=== PATIENT | male | born 1945 | race Caucasian/White ===

== ENCOUNTER 2022-03-30 10:09 | Observation (INO) ==
--- NOTE | 2022-03-30 10:19 | EKG ---
Test Reason : CHEST PAIN Blood Pressure : */* mmHG Vent. Rate : 104 BPM Atrial Rate : 104 BPM P-R Int : 156 ms QRS Dur : 76 ms QT Int : 358 ms P-R-T Axes : 41 11 4 degrees QTc Int : 470 ms Sinus tachycardia Otherwise normal ECG When compared with ECG of 12-MAR-2022 08:38, No significant change was found Confirmed by Sudhakar Gibson ([id number]) on 03/31/2022 8:39:26 AM Referred By: Confirmed By: Sudhakar Gibson
[2022-03-30] MEDS ORDERED: ZOFRAN INJ 4 MG VIAL IVP ONE (10:31)
[2022-03-30] MEDS ORDERED: MORPHINE SULFATE INJ 2 MG INJ IVP ONE (10:31)
--- NOTE | 2022-03-30 10:33 | DR.CP ---
HPI Time Seen Time Seen by Provider: 03/30/22 10:24 COVID-19 Coronavirus risk:travel/contact w/high risk person: No Has patient experienced Coronavirus symptoms: No Associated Signs and Symptoms Associated Signs and Symptoms: Shortness of Breath PMH PMH Past Surgical History: Yes Travel Risk Coronavirus risk:travel/contact w/high risk person: No Has patient experienced Coronavirus symptoms: No Infectious screening Isolation: Standard PE Vitals Vitals: Temperature 98.6 F Pulse Rate 80 Respiratory Rate 19 Blood Pressure 162/85 O2 Sat by Pulse Oximetry 100 ROR Labs Reviewed Result Diagrams: 03/30/22 10:40 03/30/22 10:40 Laboratory: WBC 10.3 X10^3/uL (3.6-10.0) H 03/30/22 10:40 RBC 4.22 X10^6/uL (4.7-6.0) L 03/30/22 10:40 Hgb 12.3 g/dL (13.5-18.0) L 03/30/22 10:40 Hct 36.7 % (42.0-54.0) L 03/30/22 10:40 MCV 86.9 fL (80.0-100.0) 03/30/22 10:40 MCH 29.1 pg (27.0-34.0) 03/30/22 10:40 MCHC 33.4 g/dL (33.0-35.0) 03/30/22 10:40 RDW 14.3 % (11.6-16.5) 03/30/22 10:40 Plt Count 451 X10^3/uL (150.0-450.0) H 03/30/22 10:40 MPV 6.6 fL (7.4-11.0) L 03/30/22 10:40 Neut % (Auto) 64.7 % (42.0-75.0) 03/30/22 10:40 Lymph % (Auto) 23.0 % (21.0-51.0) 03/30/22 10:40 [place] % (Auto) 9.3 % (0.0-13.0) 03/30/22 10:40 Eos % (Auto) 1.8 % (0.9-2.9) 03/30/22 10:40 Baso % (Auto) 1.2 % (0.2-1.0) H 03/30/22 10:40 Neut # (Auto) 6.6 x10^3/uL (2.2-4.8) H 03/30/22 10:40 Lymph # (Auto) 2.4 X10^3/uL (1.3-2.9) 03/30/22 10:40 [place] # (Auto) 1.0 x10^3/uL (0.3-0.8) H 03/30/22 10:40 Eos # (Auto) 0.2 x10^3/uL (0.0-0.2) 03/30/22 10:40 Baso # (Auto) 0.1 X10^3/uL (0.0-0.1) 03/30/22 10:40 Absolute Nucleated RBC 0.0 /100WBC 03/30/22 10:40 Sodium 140 mmol/L (136-145) 03/30/22 10:40 Corrected Sodium TNP 03/30/22 10:40 Potassium 3.6 mmol/L (3.5-5.1) 03/30/22 10:40 Chloride 104 mmol/L (98-107) 03/30/22 10:40 Carbon Dioxide 29.0 mmol/L (21-32) 03/30/22 10:40 BUN 12 mg/dL (7-18) 03/30/22 10:40 Creatinine 1.27 mg/dL (0.70-1.30) 03/30/22 10:40 Est GFR (MDRD) Af Amer > 60 (>60) 03/30/22 10:40 Est GFR (MDRD) Non-Af 59 (>60) 03/30/22 10:40 Glucose 97 mg/dL (65-99) 03/30/22 10:40 Calcium 9.1 mg/dL (8.5-10.1) 03/30/22 10:40 Corrected Calcium 10.1 mg/dL (8.5-10.1) 03/30/22 10:40 Total Bilirubin 0.50 mg/dL (0.2-1.0) 03/30/22 10:40 AST 22 Units/L (15-37) 03/30/22 10:40 ALT 21 Units/L (12-78) 03/30/22 10:40 Alkaline Phosphatase 139 Units/L (46-116) H 03/30/22 10:40 Creatine Kinase 33 Units/L (39-308) L 03/30/22 10:40 Troponin I High Sens 17.9 ng/L (4.0-60.0) 03/30/22 12:31 B-Natriuretic Peptide 80.8 pg/mL (0-79) H 03/30/22 10:40 Total Protein 7.7 g/dL (6.4-8.2) 03/30/22 10:40 Albumin 2.8 g/dL (3.4-5.0) L 03/30/22 10:40 Globulin 4.9 g/dL (2.5-4.5) H 03/30/22 10:40 Albumin/Globulin Ratio 0.6 Ratio (1.1-2.1) L 03/30/22 10:40 Opioid Opioid Risk Tool Age (Pankaj box if 16-45): No History of Preadolescent Sexual Abuse: No Total: 0 Total Score Risk Category: Low Risk Copyright: Vidal SHANE predicting aberrant behaviors Discharge Plan Diagnosis Discharge Problem: Chest pain, COPD exacerbation, SOB (shortness of breath) Discharge Plan Patient Disposition: 09 ADMITTED INPATIENT Condition: Stable Orders to Discharge Patient Discharge Orders: Transfer (Routine); Ordered 03/30/22 Ordered By: LUCAS LUCERO
[2022-03-30 10:34] VITALS: BMI 25.2
[2022-03-30 10:50] LABS: BASOPHILS # (AUTO) 0.1 X10^3/uL (0.0-0.1); BASOPHILS % (AUTO) 1.2 % (0.2-1.0); EOSINOPHILS # (AUTO) 0.2 x10^3/uL (0.0-0.2); EOSINOPHILS % (AUTO) 1.8 % (0.9-2.9); HEMATOCRIT 36.7 % (42.0-54.0); HEMOGLOBIN 12.3 g/dL (13.5-18.0); LYMPHOCYTES # (AUTO) 2.4 X10^3/uL (1.3-2.9); MEAN CORPUSCULAR HEMOGLOBIN 29.1 pg (27.0-34.0); MEAN CORPUSCULAR HGB CONC 33.4 g/dL (33.0-35.0); MEAN CORPUSCULAR VOLUME 86.9 fL (80.0-100.0); MEAN PLATELET VOLUME 6.6 fL (7.4-11.0); MONOCYTES % (AUTO) 9.3 % (0.0-13.0); NEUTROPHILS # (AUTO) 6.6 x10^3/uL (2.2-4.8); NEUTROPHILS % (AUTO) 64.7 % (42.0-75.0); RED BLOOD COUNT 4.22 X10^6/uL (4.7-6.0); RED CELL DISTRIBUTION WIDTH 14.3 % (11.6-16.5); WHITE BLOOD COUNT 10.3 X10^3/uL (3.6-10.0)
[2022-03-30] MEDS ORDERED: ZOFRAN INJ 4 MG VIAL ONE (10:50)
[2022-03-30] MEDS ORDERED: MORPHINE SULFATE INJ 2 MG INJ ONE (10:50)
[2022-03-30 11:08] LABS: ALANINE AMINOTRANSFERASE 21 Units/L (12-78); ALBUMIN 2.8 g/dL (3.4-5.0); ALKALINE PHOSPHATASE 139 Units/L (46-116); ASPARTATE AMINO TRANSFERASE 22 Units/L (15-37); BLOOD UREA NITROGEN 12 mg/dL (7-18); CALCIUM 9.1 mg/dL (8.5-10.1); CHLORIDE 104 mmol/L (98-107); COR CA(FOR HYPOALB) 10.1 mg/dL (8.5-10.1); CREATINE KINASE 33 Units/L (39-308); CREATININE 1.27 mg/dL (0.70-1.30); SODIUM 140 mmol/L (136-145); TOTAL PROTEIN 7.7 g/dL (6.4-8.2); eGFR NON BLACK RACES 59 (>60)
[2022-03-30 16:02] LABS: BILIRUBIN,URINE NEGATIVE (NEGATIVE); BLOOD/HEMOGLOBIN,URINE NEGATIVE (NEGATIVE); GLUCOSE, URINE NEGATIVE (NEGATIVE); KETONES,URINE NEGATIVE (NEGATIVE); LEUKOCYTE ESTERASE ,URINE NEGATIVE (NEGATIVE); NITRITES,URINE NEGATIVE (NEGATIVE); PROTEIN,URINE NEGATIVE (NEGATIVE); UROBILINOGEN,URINE NORMAL (NORMAL)
[2022-03-30 16:06] LABS: APPEARANCE,URINE CLEAR (CLEAR); COLOR,URINE YELLOW (YELLOW)
--- NOTE | 2022-03-30 18:20 | EKG ---
Test Reason : CHEST PAIN Blood Pressure : */* mmHG Vent. Rate : 88 BPM Atrial Rate : 88 BPM P-R Int : 162 ms QRS Dur : 80 ms QT Int : 382 ms P-R-T Axes : 51 16 10 degrees QTc Int : 462 ms Sinus rhythm with premature atrial complexes Otherwise normal ECG When compared with ECG of 30-MAR-2022 10:17, (Unconfirmed) premature atrial complexes are now present Confirmed by Sudhakar Gibson ([id number]) on 03/31/2022 8:38:38 AM Referred By: Confirmed By: Sudhakar Gibson
--- NOTE | 2022-03-30 19:15 | RAD ---
HISTORYCHEST PAINSTUDYCHEST, 1 VIEWCOMPARISONNoneFINDINGSThe cardiomediastinal silhouette is normal in size. No acute airspace disease. No pneumothorax or effusion. The bony thorax appears intact.IMPRESSIONNo acute cardiopulmonary disease.Electronically signed by: JENIFFER AGUILAR (Mar 30, 2022 19:13:06)
--- NOTE | 2022-03-31 01:02 | EKG ---
Test Reason : CHEST PAIN Blood Pressure : */* mmHG Vent. Rate : 85 BPM Atrial Rate : 85 BPM P-R Int : 166 ms QRS Dur : 82 ms QT Int : 384 ms P-R-T Axes : 29 2 -4 degrees QTc Int : 456 ms Normal sinus rhythm Normal ECG Confirmed by Sudhakar Gibson ([id number]) on 03/31/2022 8:37:50 AM Referred By: Confirmed By: Sudhakar Gibson
[2022-03-31 06:17] LABS: BASOPHILS # (AUTO) 0.1 X10^3/uL (0.0-0.1); BASOPHILS % (AUTO) 0.9 % (0.2-1.0); EOSINOPHILS # (AUTO) 0.2 x10^3/uL (0.0-0.2); EOSINOPHILS % (AUTO) 2.1 % (0.9-2.9); HEMATOCRIT 35.7 % (42.0-54.0); HEMOGLOBIN 11.9 g/dL (13.5-18.0); LYMPHOCYTES # (AUTO) 2.5 X10^3/uL (1.3-2.9); LYMPHOCYTES % (AUTO) 25.5 % (21.0-51.0); MEAN CORPUSCULAR HEMOGLOBIN 28.9 pg (27.0-34.0); MEAN CORPUSCULAR HGB CONC 33.3 g/dL (33.0-35.0); MEAN CORPUSCULAR VOLUME 86.8 fL (80.0-100.0); MONOCYTES % (AUTO) 10.3 % (0.0-13.0); NEUTROPHILS # (AUTO) 6.1 x10^3/uL (2.2-4.8); NEUTROPHILS % (AUTO) 61.2 % (42.0-75.0); RED BLOOD COUNT 4.11 X10^6/uL (4.7-6.0); RED CELL DISTRIBUTION WIDTH 14.3 % (11.6-16.5)
[2022-03-31 06:19] LABS: INR 1.19 (0.8-1.3)
[2022-03-31 06:24] LABS: ALANINE AMINOTRANSFERASE 23 Units/L (12-78); ALBUMIN 2.6 g/dL (3.4-5.0); ALKALINE PHOSPHATASE 138 Units/L (46-116); ASPARTATE AMINO TRANSFERASE 27 Units/L (15-37); BLOOD UREA NITROGEN 12 mg/dL (7-18); CALCIUM 8.8 mg/dL (8.5-10.1); CARBON DIOXIDE 27.2 mmol/L (21-32); CHLORIDE 103 mmol/L (98-107); COR CA(FOR HYPOALB) 9.9 mg/dL (8.5-10.1); COR NA(FOR HYPERGLY) 139 mmol/L (136-145); MAGNESIUM 2.1 mg/dL (2.0-2.9); SODIUM 138 mmol/L (136-145); TOTAL PROTEIN 7.3 g/dL (6.4-8.2); eGFR NON BLACK RACES 57 (>60)
[2022-03-31] MEDS ORDERED: ULTRAM PO PRN (07:11)
[2022-03-31] MEDS ORDERED: K-DUR TAB 20 MEQ PO PRN (07:18)
[2022-03-31] MEDS ORDERED: K-RIDER 10 MEQ/NS 100 ML 10 MEQ/100 ML BAG IV PRN (07:18)
[2022-03-31] MEDS ORDERED: POTASSIUM CHL 40 MEQ/NS 0.45% 500 ML IV PRN (07:18)
[2022-03-31] MEDS ORDERED: MICRO K EXTEN CAP 10 MEQ PO PRN (07:18)
[2022-03-31] MEDS ORDERED: KLOR-CON PO PRN (07:18)
[2022-03-31] MEDS ORDERED: POTASSIUM CHL 60 MEQ/NS 0.45% 500 ML IV PRN (07:18)
[2022-03-31] MEDS ORDERED: MAGNESIUM SULFATE 1 GRAM/100 mL PREMIX 1 G/100 ML BAG IV PRN (07:18)
[2022-03-31] MEDS ORDERED: POTASSIUM CHLORIDE LIQ 20 MEQ UDC PO PRN (07:18)
[2022-03-31] MEDS ORDERED: CYMBALTA PO SCH (09:00)
[2022-03-31] MEDS ORDERED: PROTONIX TAB 40 MG PO SCH (09:00)
[2022-03-31 10:42] VITALS: BP 118/71
--- NOTE | 2022-04-01 07:50 | DR.SSS ---
SHORT STAY SUMMARY Admission Date Date of Admission: 03/30/22 Discharge Date Discharge Date: 03/31/22 Admission Diagnoses Admission Diagnoses: Chest pain rule out Discharge Diagnoses Discharge Diagnoses: Chest pain ruled out Chief Complaint Chief Complaint: Chest pain History of Present Illness History of Present Illness: Pt is a 77 year old male presenting with chest pain that started yesterday and lasted for a few minutes. He reports feeling a little short of breath at that time. He also admits to being under a lot of stress recently. Labs/imaging: Wbc 10, Hgb 11.9, Plt 440, Na 138, K 3.3, Creatinine 1.30, Glucose 123, Troponin negative x 3, EKG no STEMI. Pt was admitted and observed overnight. He did not have recurrence of pain and no shortness of breath. Cardiac enzymes were negative. Pt was discharged in stable condition. Instructed to follow up with his pcp for referral to cardiology of his choice. Past Medical History Past Medical History: Anxiety, COPD, Coronary Artery Disease, Hypertension and [place] Past Surgical History Surgical History: Ortho Surgery Allergies Allergies Allergy/AdvReac Type Severity Reaction Status Date / Time aspirin AdvReac Mild stomach Verified 03/30/22 10:24 problems Medications Home Medications: aspirin Adverse Reaction (Mild, Verified 03/30/22 10:24) stomach problems CONTINUE taking the following medications clarithromycin 500 mg tablet 500 mg PO BID 03/30/22 [History] duloxetine 30 mg capsule,delayed release 30 mg PO DAILY 03/30/22 [History] pantoprazole 40 mg tablet,delayed release (Protonix) 40 mg PO DAILY 03/30/22 [History] polyethylene glycol 17 ea miscellaneous DAILY PRN 03/30/22 [History] Family History Family Medical History: [place], Coronary Artery Disease, Sudden Cardiac and Hypertension Social History Type of Tobacco Use: Cigarettes Alcohol Use: DAILY Drug Use: None Review of Systems Constitutional: No Symptoms Reported Eyes: No Symptoms Reported ENT: No Symptoms Reported Respiratory: Shortness of Breath Cardiovascular: Chest Pain Gastrointestinal: No Symptoms Reported Genitourinary: No Symptoms Reported Musculoskeletal: No Symptoms Reported Skin: No Symptoms Reported Neurological: No Symptoms Reported Physical Exam Vital Signs: Last Vital Signs Temp 98.5 F 03/31/22 04:00 Pulse 87 03/31/22 04:00 Resp 20 03/31/22 08:45 BP 134/78 03/31/22 04:00 Pulse Ox 96 03/31/22 04:00 O2 Del Method Room Air 03/31/22 08:54 O2 Flow Rate 2 03/30/22 21:00 FiO2 28 03/30/22 21:00 Oriented: Normal Eyes: Normal Ear: Normal Nose: Normal Throat: Normal Respiratory: Clear Throughout Cardiovascular: Normal : Normal Auscultation: Bowel Sounds: Normal Palpation: Normal Tenderness: Normal Skin: Normal Musculoskeletal: Normal Psychiatric: Normal Speech Pattern: Clear Labs Labs: Laboratory Last Values WBC 10.0 X10^3/uL (3.6-10.0) 03/31/22 05:50 RBC 4.11 X10^6/uL (4.7-6.0) L 03/31/22 05:50 Hgb 11.9 g/dL (13.5-18.0) L 03/31/22 05:50 Hct 35.7 % (42.0-54.0) L 03/31/22 05:50 MCV 86.8 fL (80.0-100.0) 03/31/22 05:50 MCH 28.9 pg (27.0-34.0) 03/31/22 05:50 MCHC 33.3 g/dL (33.0-35.0) 03/31/22 05:50 RDW 14.3 % (11.6-16.5) 03/31/22 05:50 Plt Count 440 X10^3/uL (150.0-450.0) 03/31/22 05:50 MPV 7.0 fL (7.4-11.0) L 03/31/22 05:50 Neut % (Auto) 61.2 % (42.0-75.0) 03/31/22 05:50 Lymph % (Auto) 25.5 % (21.0-51.0) 03/31/22 05:50 [place] % (Auto) 10.3 % (0.0-13.0) 03/31/22 05:50 Eos % (Auto) 2.1 % (0.9-2.9) 03/31/22 05:50 Baso % (Auto) 0.9 % (0.2-1.0) 03/31/22 05:50 Neut # (Auto) 6.1 x10^3/uL (2.2-4.8) H 03/31/22 05:50 Lymph # (Auto) 2.5 X10^3/uL (1.3-2.9) 03/31/22 05:50 [place] # (Auto) 1.0 x10^3/uL (0.3-0.8) H 03/31/22 05:50 Eos # (Auto) 0.2 x10^3/uL (0.0-0.2) 03/31/22 05:50 Baso # (Auto) 0.1 X10^3/uL (0.0-0.1) 03/31/22 05:50 Absolute Nucleated RBC 0.0 /100WBC 03/31/22 05:50 PT 14.7 SECONDS (11.8-14.3) 03/31/22 05:50 INR Target Range - 03/31/22 05:50 INR 1.19 (0.8-1.3) 03/31/22 05:50 APTT 32.9 SECONDS (22.9-36.5) 03/31/22 05:50 PTT Comment - 03/31/22 05:50 Sodium 138 mmol/L (136-145) 03/31/22 05:50 Corrected Sodium 139 mmol/L (136-145) 03/31/22 05:50 Potassium 3.3 mmol/L (3.5-5.1) L 03/31/22 05:50 Chloride 103 mmol/L (98-107) 03/31/22 05:50 Carbon Dioxide 27.2 mmol/L (21-32) 03/31/22 05:50 BUN 12 mg/dL (7-18) 03/31/22 05:50 Creatinine 1.30 mg/dL (0.70-1.30) 03/31/22 05:50 Est GFR (MDRD) Af Amer > 60 (>60) 03/31/22 05:50 Est GFR (MDRD) Non-Af 57 (>60) L 03/31/22 05:50 Glucose 123 mg/dL (65-99) H 03/31/22 05:50 Calcium 8.8 mg/dL (8.5-10.1) 03/31/22 05:50 Corrected Calcium 9.9 mg/dL (8.5-10.1) 03/31/22 05:50 Magnesium 2.1 mg/dL (2.0-2.9) 03/31/22 05:50 Total Bilirubin 0.40 mg/dL (0.2-1.0) 03/31/22 05:50 AST 27 Units/L (15-37) 03/31/22 05:50 ALT 23 Units/L (12-78) 03/31/22 05:50 Alkaline Phosphatase 138 Units/L (46-116) H 03/31/22 05:50 Creatine Kinase 33 Units/L (39-308) L 03/30/22 10:40 Troponin I High Sens 18.2 ng/L (4.0-60.0) 03/30/22 18:05 B-Natriuretic Peptide 80.8 pg/mL (0-79) H 03/30/22 10:40 Total Protein 7.3 g/dL (6.4-8.2) 03/31/22 05:50 Albumin 2.6 g/dL (3.4-5.0) L 03/31/22 05:50 Globulin 4.7 g/dL (2.5-4.5) H 03/31/22 05:50 Albumin/Globulin Ratio 0.6 Ratio (1.1-2.1) L 03/31/22 05:50 Specimen Type Random urine 03/30/22 15:50 Urine Color Yellow (YELLOW) 03/30/22 15:50 Urine Appearance Clear (CLEAR) 03/30/22 15:50 Urine pH 6.0 (5.0 - 8.0) 03/30/22 15:50 Ur Specific [place] 1.020 (1.000-1.030) 03/30/22 15:50 Urine Protein Negative (NEGATIVE) 03/30/22 15:50 Urine Glucose (UA) Negative (NEGATIVE) 03/30/22 15:50 Urine Ketones Negative (NEGATIVE) 03/30/22 15:50 Urine Blood Negative (NEGATIVE) 03/30/22 15:50 Urine Nitrite Negative (NEGATIVE) 03/30/22 15:50 Urine Bilirubin Negative (NEGATIVE) 03/30/22 15:50 Urine Urobilinogen Normal (NORMAL) 03/30/22 15:50 Ur Leukocyte Esterase Negative (NEGATIVE) 03/30/22 15:50 Assessment/Plan (1) Chest pain: (2) SOB (shortness of breath): Hospital Course Hospital Course: Pt is a 77 year old male presenting with chest pain that started yesterday and lasted for a few minutes. He reports feeling a little short of breath at that time. He also admits to being under a lot of stress recently. Labs/imaging: Wbc 10, Hgb 11.9, Plt 440, Na 138, K 3.3, Creatinine 1.30, Glucose 123, Troponin negative x 3, EKG no STEMI. Pt was admitted and observed overnight. He did not have recurrence of pain and no shortness of breath. Cardiac enzymes were negative. Pt was discharged in stable condition. Instructed to follow up with his pcp for referral to cardiology of his choice. Discharge Medications Discharge Medications: Home Medication List clarithromycin 500 mg tablet 500 mg PO BID 03/30/22 [History] duloxetine 30 mg capsule,delayed release 30 mg PO DAILY 03/30/22 [History] pantoprazole 40 mg tablet,delayed release (Protonix) 40 mg PO DAILY 03/30/22 [History] polyethylene glycol 17 ea miscellaneous DAILY PRN 03/30/22 [History] Prescriptions: Discharge Plan Discharge Plan Patient Disposition: 01 HOME, SELF-CARE Condition: Stable Health Concerns: Post Hospitalization: new medications and changes needed to prevent readmission or further decline. Pt educated and given instructions on all concerns. Care Plan Goals: Problem: Cardiac Complications Goal: Early Recognition of cardiac complications for prompt intervention Instructions: Follow provided instructions. Follow up with primary physician as directed. Contact primary care physician or report to the closest Emergency Room if condition worsens. Plan of Treatment: Continue with present treatment and follow up plan. Pt is to keep follow up appointment as instructed and take medications as ordered. Prescriptions: Continued clarithromycin 500 mg Tablet 500 mg PO BID pantoprazole [Protonix] 40 mg Tablet,Delayed Release (Dr/Ec) 40 mg PO DAILY polyethylene glycol Powder 17 ea MISCELLANEOUS DAILY PRN duloxetine 30 mg Capsule,Delayed Release(Dr/Ec) 30 mg PO DAILY Orders to Discharge Patient Discharge Orders: Discharge (Routine); Ordered 03/31/22 Ordered By: Nasir Ocampo Follow ups/Referrals Follow ups/Referrals: Sudhakar Gibson [STAFF PHYSICIAN] - (Office will call you with appointment) Nahomi Lawrence [REFERRING] - 04/07/22 10:00 am Instructions Instructions: Chronic Obstructive Pulmonary Disease Exacerbation, [id number], Nonspecific Chest Pain, Adult, [id number] Activity Restrictions/Additional Instructions: Follow up with PCP and Cardiology of choice.
== END 2022-03-31 11:35 | disposition home or self-care (01) ==
LOC: MED/SURG 10:09 → ER 10:09 → MED/SURG 14:15
PROVIDERS: ADMIT Family Medicine; ATTEND Family Medicine
DX: I25.10 Atherosclerotic heart disease of native coronary artery without angina pectoris; F41.8 Other specified anxiety disorders; R07.89 Other chest pain; R06.02 Shortness of breath; I10 Essential (primary) hypertension; J44.1 Chronic obstructive pulmonary disease with (acute) exacerbation

== ENCOUNTER 2022-06-11 08:45 | Inpatient (IN) ==
--- NOTE | 2022-06-11 08:50 | DR.N/VMALE ---
HPI Time Seen Time Seen by Provider: 06/11/22 08:55 Complaints Chief Complaint Doctors Comments: 77 y/o male brought in for evaluation. Pt recently diagnosed with metastatic colon ca. Had a colostomy last month. Having increased abdominal pain this am, with nausea, vomiting. Has had distension of the abdomen, with diffuse pain. Pain is sharp, of entire abdomen, does not radiate. + worse with palpation, moving. Nothing makes it better. Colostomy bag changed few hours ago, no output since. No report of fever, URI symptoms. Pt is under hospice care. Reviewed Nurses Notes Reviewed: Yes Source History Provided: Patient, Significant Other and EMS PMH PMH Past Medical History: Anxiety, Coronary Artery Disease, Diabetes, Hypertension and [place] Past Medical History Comment: Metastatic colon ca Past Surgical History: Yes Surgical History: Ortho Surgery Family History Family Medical History: Diabetes Mellitus, Cancer, [place], Coronary Artery Disease and Hypertension Social History Do you use any recreational Drugs:: No ROS Review of Systems Constitutional: Weakness Eyes: No Symptoms Reported ENTM: No Symptoms Reported Respiratoy: No Symptoms Reported Cardiovascular: No Symptoms Reported Gastrointestinal/Abdominal: See HPI Genitourinary: No Symptoms Reported Neurological: No Symptoms Reported Musculoskeletal: No Symptoms Reported Integumentary: No Symptoms Reported Psychiatric: No Symptoms Reported All Other Systems: Reviewed and Negative PE Vital Signs Vitals: Temperature 97.3 F Pulse Rate 97 Respiratory Rate 31 Blood Pressure [Left Arm] 118/71 Blood Pressure 115/66 O2 Sat by Pulse Oximetry 98 General General Appearance: Alert and Other (appears uncomfortable.) Eyes Eye exam: PERRL and EOMI Neck Neck Exam: Normal Inspection Respiratory Respiratory Exam: Normal Lung Sounds Bilat; negative Accessory Muscle Use or Respiratory Distress Cardiovascular Cardiovascular Exam: Regular Rate, Normal Rhythm and Normal Heart Sounds Abdominal Exam Abdominal Exam: Distention, Tenderness (diffusely to minimal palpation, + firm abdomen), Guarding, Rebound and Hypoactive Bowel Sounds Extremities Extremities Exam: Normal Inspection; negative Edema Neurologic Neurological Exam: Alert, Oriented X3 and CN II-XII Intact; negative Motor Sensory Deficit Psychiatric Psychiatric Exam: Normal Affect COURSE Treatment Treatment: 77 y/o male, recent dx of metastatic colon ca, with a colostomy, presents with increased abd pain, distension. Presentation concerning for perforated hollow viscus. W/u initiated, pt given IV fluids, IV dilaudid/zofran. 0928 - spouse present, discussed pt's current situation. BP low, giving fluid bolus. CXR - with increased R side lung markings, concerning for metastasis, with the suggestion of free air under the R hemidiaphragm, will obtain abd CT when BP higher. Spouse notified hospice that she wants the pt to be a full code. Will obtain lactic acid, blood cultures and give IV antibiotics. Cr elevated to 3.08, EGFR 21, c/w acute renal injury. 1018 - CT shows small amount of free air under R hemidiaphragm. Discussed with spouse. Not a good surgical candidate. She would like him admitted here. Discussed code status, spouse wanted limited resuscitation efforts, no intubation. Explained to her the futility of coding him, if he were to suddenly pass. Call put out to his attending, Dr Barksdale. He will admit. Consulted with surgery, Dr Ferrari, will see pt, but agrees that he is an extremely poor surgical candidate. ROR Labs Reviewed Laboratory Results Reviewed?: Yes Result Diagrams: 06/11/22 09:04 06/11/22 09:04 Laboratory: WBC 17.5 X10^3/uL (3.6-10.0) H 06/11/22 09:04 RBC 4.45 X10^6/uL (4.7-6.0) L 06/11/22 09:04 Hgb 12.8 g/dL (13.5-18.0) L 06/11/22 09:04 Hct 38.5 % (42.0-54.0) L 06/11/22 09:04 MCV 86.5 fL (80.0-100.0) 06/11/22 09:04 MCH 28.8 pg (27.0-34.0) 06/11/22 09:04 MCHC 33.3 g/dL (33.0-35.0) 06/11/22 09:04 RDW 16.2 % (11.6-16.5) 06/11/22 09:04 Plt Count 556 X10^3/uL (150.0-450.0) H 06/11/22 09:04 MPV 7.3 fL (7.4-11.0) L 06/11/22 09:04 Neut % (Auto) 88.6 % (42.0-75.0) H 06/11/22 09:04 Lymph % (Auto) 6.9 % (21.0-51.0) L 06/11/22 09:04 [place] % (Auto) 4.1 % (0.0-13.0) 06/11/22 09:04 Eos % (Auto) 0.0 % (0.9-2.9) L 06/11/22 09:04 Baso % (Auto) 0.4 % (0.2-1.0) 06/11/22 09:04 Neut # (Auto) 15.5 x10^3/uL (2.2-4.8) H 06/11/22 09:04 Lymph # (Auto) 1.2 X10^3/uL (1.3-2.9) L 06/11/22 09:04 [place] # (Auto) 0.7 x10^3/uL (0.3-0.8) 06/11/22 09:04 Eos # (Auto) 0.0 x10^3/uL (0.0-0.2) 06/11/22 09:04 Baso # (Auto) 0.1 X10^3/uL (0.0-0.1) 06/11/22 09:04 Absolute Nucleated RBC 0.1 /100WBC 06/11/22 09:04 Sodium 138 mmol/L (136-145) 06/11/22 09:04 Corrected Sodium 140 mmol/L (136-145) 06/11/22 09:04 Potassium 2.9 mmol/L (3.5-5.1) L* 06/11/22 09:04 Chloride 99 mmol/L (98-107) 06/11/22 09:04 Carbon Dioxide 27.0 mmol/L (21-32) 06/11/22 09:04 BUN 20 mg/dL (7-18) H 06/11/22 09:04 Creatinine 3.08 mg/dL (0.70-1.30) H 06/11/22 09:04 Est GFR (MDRD) Af Amer 26 (>60) L 06/11/22 09:04 Est GFR (MDRD) Non-Af 21 (>60) L 06/11/22 09:04 Glucose 168 mg/dL (65-99) H 06/11/22 09:04 Lactic Acid 7.2 mmol/L (0.4-2.0) H 06/11/22 10:20 Calcium 9.6 mg/dL (8.5-10.1) 06/11/22 09:04 Corrected Calcium 11.2 mg/dL (8.5-10.1) H 06/11/22 09:04 Total Bilirubin 0.40 mg/dL (0.2-1.0) 06/11/22 09:04 AST 49 Units/L (15-37) H 06/11/22 09:04 ALT 24 Units/L (12-78) 06/11/22 09:04 Alkaline Phosphatase 264 Units/L (46-116) H 06/11/22 09:04 Total Protein 6.9 g/dL (6.4-8.2) 06/11/22 09:04 Albumin 2.0 g/dL (3.4-5.0) L 06/11/22 09:04 Globulin 4.9 g/dL (2.5-4.5) H 06/11/22 09:04 Albumin/Globulin Ratio 0.4 Ratio (1.1-2.1) L 06/11/22 09:04 Lipase 35 Units/L (73-393) L 06/11/22 09:04 XRAY XRAY Interpreted by: Self X-ray Results: CXR, CT abd with small amount of free air under R hemidiaphragm. Opioid Opioid Risk Tool Age (Pankaj box if 16-45): No History of Preadolescent Sexual Abuse: No Total: 0 Total Score Risk Category: Low Risk Copyright: Vidal SHANE predicting aberrant behaviors Discharge Plan Diagnosis Discharge Problem: Perforated abdominal viscus, Carcinoma of colon metastatic to multiple sites, Acute nontraumatic kidney injury Discharge Plan Patient Disposition: ADMITTED INPATIENT Condition: Stable Orders to Discharge Patient Discharge Orders: Transfer (Routine); Ordered 06/11/22 Ordered By: Ankur Garcia
[2022-06-11] MEDS ORDERED: DILAUDID INJ IVP ONE (08:53)
[2022-06-11] MEDS ORDERED: ZOFRAN INJ 4 MG VIAL IVP ONE ×2 (08:53→11:20)
[2022-06-11] MEDS ORDERED: ZOFRAN INJ 4 MG VIAL ONE ×2 (09:08→14:39)
[2022-06-11] MEDS ORDERED: NS 1,000 ML IV 1,000 ML ONE ×2 (09:08→11:23)
[2022-06-11] MEDS ORDERED: DILAUDID INJ ONE (09:08)
[2022-06-11 09:12] VITALS: BMI 23.6
[2022-06-11] MEDS: NS 1,000 ML IV 1,000 ML IV ONE ×2 (09:13→11:26)
[2022-06-11 09:18] LABS: BASOPHILS # (AUTO) 0.1 X10^3/uL (0.0-0.1); LYMPHOCYTES # (AUTO) 1.2 X10^3/uL (1.3-2.9); WHITE BLOOD COUNT 17.5 X10^3/uL (3.6-10.0)
[2022-06-11 09:21] LABS: BASOPHILS % (AUTO) 0.4 % (0.2-1.0); HEMATOCRIT 38.5 % (42.0-54.0); HEMOGLOBIN 12.8 g/dL (13.5-18.0); LYMPHOCYTES % (AUTO) 6.9 % (21.0-51.0); MEAN CORPUSCULAR HEMOGLOBIN 28.8 pg (27.0-34.0); MEAN CORPUSCULAR HGB CONC 33.3 g/dL (33.0-35.0); MEAN CORPUSCULAR VOLUME 86.5 fL (80.0-100.0); MEAN PLATELET VOLUME 7.3 fL (7.4-11.0); MONOCYTES # (AUTO) 0.7 x10^3/uL (0.3-0.8); MONOCYTES % (AUTO) 4.1 % (0.0-13.0); NEUTROPHILS # (AUTO) 15.5 x10^3/uL (2.2-4.8); NEUTROPHILS % (AUTO) 88.6 % (42.0-75.0); PLATELET COUNT 556 X10^3/uL (150.0-450.0); RED BLOOD COUNT 4.45 X10^6/uL (4.7-6.0); RED CELL DISTRIBUTION WIDTH 16.2 % (11.6-16.5)
[2022-06-11 09:29] LABS: CALCIUM 9.6 mg/dL (8.5-10.1); COR CA(FOR HYPOALB) 11.2 mg/dL (8.5-10.1); CREATININE 3.08 mg/dL (0.70-1.30); TOTAL PROTEIN 6.9 g/dL (6.4-8.2)
[2022-06-11 09:32] LABS: POTASSIUM 2.9 mmol/L (3.5-5.1)
[2022-06-11] MEDS ORDERED: ZOSYN VIAL 3.375 GRAMS 3.375 G in NS 100 ML IV 100 ML IV ONE (09:42)
[2022-06-11] MEDS ORDERED: ZOSYN VIAL 3.375 GRAMS IV ONE (10:03)
[2022-06-11] MEDS ORDERED: NS 100 ML IV 100 ML ONE (10:03)
--- NOTE | 2022-06-11 10:53 | CT ---
HISTORYSevere abdominal pain, abdominal distention and vomitingSTUDYCT abdomen pelvis without contrastTechnique: Axial noncontrast images with coronal and sagittal reformats. Dose reduction procedures were used with mA/kv adjusted for body size. THIS EXAMINATION IS LIMITED DUE TO THE LACK OF INTRAVENOUS CONTRAST. The examination was performed in this manner at the sole discretion of the ordering caregiver.[id number]/09/2023FINDINGSTh ere is a small right pleural effusion present. Trace left pleural effusion is present. The heart is enlarged. Lung bases are free of acute infiltrates. Bibasilar pulmonary fibrosis is present. There is a pneumoperitoneum present. In the absence of recent abdominal surgery, peg tube placement or manipulation or peritoneal dialysis this is indicative of a perforated viscus. There is fluid within the peritoneum possibly indicative of developing peritonitis. The site of perforation is not obvious. immediate surgical evaluation is recommended. The liver is normal in size and configuration and diffusely involved with metastatic disease likely progressive when compared to the prior examination 04/16/2022. The spleen, adrenal glands, and pancreas are within normal limits. No opaque stones are present within the gallbladder. The kidneys are unobstructed and without stones. No ureteral calculi are identified. Abdominal aorta is normal in caliber. No enlarged intraperitoneal or retroperitoneal lymphadenopathy is identified. The appendix appears normal. There are multiple loops of small bowel in the lower mid abdomen which demonstrate for marked transmural thickening, mesenteric edema and some interloop fluid. Although this could be due to severe inflammatory or infectious enteritis small bowel ischemia is a differential diagnostic possibility that needs to be clinically excluded. Proximal to these edematous loops the small bowel is dilated but without transmural thickening. The patient appears to be status post proximal transverse colostomy. Diverticulosis of the remaining distal colon is present as are the previously described rectal and sigmoid neoplastic masses. No pelvic masses or pelvic fluid identified. No bladder abnormality identified. No lytic or blastic skeletal lesions are identified. There is minimal anterolisthesis L5 on S1 secondary to bilateral spondylolysis at L5.IMPRESSIONPneumoperitoneum which, in the absence of recent surgery, peritoneal dialysis, or peg tube placement or manipulation, indicates a perforated viscus. Site of perforation not obvious. Immediate surgical evaluation is recommended.Peritoneal fluid present suggestive of developing acute peritonitisMultiple loops of distal small bowel demonstrating transmural thickening, adjacent mesenteric edema and perienteric fluid. Frontal diagnostic considerations include ischemic small bowel and acute inflammatory or infectious enteritisDiffuse hepatic metastatic disease progressive when compared to the prior examinationRe-demonstration of the patient's sigmoid and rectal malignanciesMinimal anterolisthesis L5 on S1 secondary to bilateral spondylolysis at L5.Electronically signed by: JENIFFER AGUILAR (June 11, 2022 10:51:40)
[2022-06-11] MEDS ORDERED: DILAUDID INJ IVP PRN (11:20)
[2022-06-11] MEDS ORDERED: NS 1,000 ML IV 1,000 ML IV ONE (11:25)
--- NOTE | 2022-06-11 11:41 | RAD ---
HISTORYPT C/O VOMITTING "BLACK" EMESIS, SEVERE ABDOMINAL PAIN AND ABDOMINAL DISTENSION/TIGHTNESS ORTHO, COLOSTOMY, [place], HTN, DM, COLON CA, LIVER CA, RECTAL CASTUDYCHEST, 1 [id number]/20/2023FINDINGSTrachea is midline there is mild cardiomegaly since prior study there is a new right-sided Port-A-Cath with the tip in the right atrium. There is no evidence of pneumothorax or pleural effusions.There is small lucency along the diaphragm in the right suspicious for free air. No dominant alveolar radiopacities. Mild increase of the interstitial markings in the bases, viral pneumonia is not excludedIMPRESSIONSuspicious free air with lucency in the right diaphragm.Increase of the interstitial markings in the bases, it could represent viral pneumonia clinical correlation is recommended.Electronically signed by: Sugar Lott (June 11, 2022 11:40:32)
[2022-06-11] MEDS ORDERED: XOPENEX 1.25 MG/3 ML NEBULE NEB SCH (13:00)
[2022-06-11] MEDS ORDERED: ZOSYN VIAL 3.375 GRAMS 3.375 G in NS 100 ML IV 100 ML IV SCH (14:33)
[2022-06-11] MEDS ORDERED: ZOFRAN INJ 4 MG VIAL IVP PRN (14:33)
[2022-06-11] MEDS: ZOFRAN INJ 4 MG VIAL IVP PRN ×2 (14:42→23:00)
[2022-06-11 15:09] LABS: INR 1.29 (0.8-1.3)
[2022-06-11] MEDS: D5 1/2 NS + KCL 20 MEQ/L 1,000 ML IV SCH ×2 (15:45→23:55)
[2022-06-11] MEDS: ZOSYN VIAL 3.375 GRAMS 3.375 G in NS 100 ML IV 100 ML IV SCH ×2 (16:10→21:04)
[2022-06-11] MEDS: XOPENEX 1.25 MG/3 ML NEBULE NEB SCH ×2 (17:18→21:05)
[2022-06-11] MEDS: MORPHINE SULFATE INJ 2 MG INJ IVP PRN (19:10)
[2022-06-11] MEDS ORDERED: PULMICORT NEB TX 0.5 MG NEB SCH (21:00)
[2022-06-11] MEDS: PULMICORT NEB TX 0.5 MG NEB SCH (21:05)
--- NOTE | 2022-06-11 23:40 | DR.CONSULT ---
CONSULT Consultation for Day of: Date: 06/11/22 Chief Complaint Chief Complaint: Abdominal pain Allergies Allergies Allergy/AdvReac Type Severity Reaction Status Date / Time aspirin AdvReac Mild stomach Verified 03/30/22 10:24 problems gabapentin AdvReac Mild Verified 06/11/22 09:16 History of Present Illness History of Present Illness: 77 year old male diagnosed several months ago with rectal carcinoma status post diverting end colostomy. Known to have metastasis to the liver and probably the lung as well. Patient has refused chemotherapy or treatment. He was in the emergency room with abdominal pain. CT scan shows areas of free air under the diaphragm. He is not a surgical candidate. Family does not want him to have surgery. Past Medical History Past Medical History: Anxiety, Coronary Artery Disease, Diabetes, Hypertension and SD Past Surgical History Surgical History: Ortho Surgery Family History Family Medical History: Diabetes Mellitus, Cancer, SD, Coronary Artery Disease and Hypertension Social History Does patient currently use any type of tobacco product: No Have you used tobacco products in the last 12 months: No Type of Tobacco Use: Pipe Does any household member use tobacco: No Alcohol Use: DAILY Drug Use: None Medications Home Medications: aspirin Adverse Reaction (Mild, Verified 03/30/22 10:24) stomach problems gabapentin Adverse Reaction (Mild, Verified 06/11/22 09:16) CONTINUE taking the following medications cetirizine 5 mg chewable tablet 5 mg PO QDAY 06/11/22 [History] docusate sodium 100 mg capsule 1 cap PO BID 06/11/22 [History] hydrocodone 10 mg-acetaminophen 325 mg tablet 1 tab PO Q6H PRN pain 06/11/22 [History] ibuprofen 800 mg tablet 1 tab PO Q6H PRN pain 06/11/22 [History] lorazepam 0.5 mg tablet 1 tab PO Q6H PRN anxiety 06/11/22 [History] metoprolol succinate 50 mg tablet,extended release 24 hr 1 tab PO QDAY 06/11/22 [History] ondansetron 4 mg disintegrating tablet 4 mg PO Q6H PRN 06/11/22 [History] Review of Systems Constitutional: See HPI Eyes: No Symptoms Reported ENT: No Symptoms Reported Respiratory: No Symptoms Reported Cardiovascular: No Symptoms Reported Gastrointestinal: See HPI Genitourinary: No Symptoms Reported Musculoskeletal: No Symptoms Reported Skin: No Symptoms Reported Physical Exam Vital Signs: Temperature 97.6 F Pulse Rate [Bilateral Radial] 95 Pulse Rate 99 Respiratory Rate 27 Blood Pressure [Left Arm] 85/57 Blood Pressure 93/60 O2 Sat by Pulse Oximetry 97 WBC=17.5, K=2.9, Cr=3.08 Oriented: Person and Place; negative Time Eyes: Normal Ear: Normal Nose: Normal Throat: Normal Respiratory: Diminished Throughout Cardiovascular: Tachycardia : Normal Auscultation: Bowel Sounds: Absent and Other (LLQ ostomy) Palpation: Other (distended ) Tenderness: Other (diffusely tender throughout the abdomen) Skin: Normal Musculoskeletal: Normal Psychiatric: Other (patietn not answering questions ) Mood Description: Withdrawn Plan (1) Perforated abdominal viscus: Status: Acute Plan: Chanelleetn is not a surgical candidate. Surgery will not aid this patient. does not want him to have surgery, (2) Carcinoma of colon metastatic to multiple sites: Status: Acute (3) Acute nontraumatic kidney injury: Status: Acute
[2022-06-12] MEDS: D5 1/2 NS + KCL 20 MEQ/L 1,000 ML IV SCH ×4 (00:48→21:29)
[2022-06-12] MEDS: MORPHINE SULFATE INJ 2 MG INJ IVP PRN ×3 (00:50→09:58)
--- NOTE | 2022-06-12 05:14 | RAD ---
PROCEDURE: Abdomen X-ray 1 View .HISTORY: NG TUBE PLACEMENT .TECHNIQUE: AP supine abdomen view .COMPARISON: None .TECHNICAL QUALITY: Satisfactory .FINDINGS:NG tube tip in the body of the stomach in good position.Some dilated small bowel loops upper abdomen.IMPRESSION:Good NG-tube placement.Electronically signed by: Anders Hernandez (June 12, 2022 05:13:06)
--- NOTE | 2022-06-12 07:43 | RAD ---
HISTORYSOBSTUDYCHEST, 1 [id number]/04/2023.TECHNIQUEPA or AP view of the chestFINDINGSRight chest wall port with tip in the right atrium. NG tube courses below the visualized field of view.The cardiac and mediastinal contours appear stable. There are right mid and lower lung patchy opacities worse than prior. Blunted costophrenic sulci. No pneumothorax.IMPRESSIONPatchy right mid and lower lung opacities may represent pneumonia in the appropriate clinical setting. Blunted costophrenic sulci can be seen with small pleural effusions or pleuro-parynchemal scarring.Electronically signed by: Cecil Quiroz (June 12, 2022 07:41:38)
[2022-06-12] MEDS: ZOSYN VIAL 3.375 GRAMS 3.375 G in NS 100 ML IV 100 ML IV SCH ×3 (08:32→21:31)
[2022-06-12] MEDS: XOPENEX 1.25 MG/3 ML NEBULE NEB SCH ×4 (09:15→21:15)
[2022-06-12] MEDS: PULMICORT NEB TX 0.5 MG NEB SCH ×2 (09:15→21:15)
[2022-06-12 09:25] LABS: BASOPHILS % (AUTO) 0.2 % (0.2-1.0); HEMOGLOBIN 11.2 g/dL (13.5-18.0); LYMPHOCYTES # (AUTO) 1.4 X10^3/uL (1.3-2.9); MONOCYTES # (AUTO) 0.5 x10^3/uL (0.3-0.8); NEUTROPHILS # (AUTO) 17.1 x10^3/uL (2.2-4.8); WHITE BLOOD COUNT 19.1 X10^3/uL (3.6-10.0)
[2022-06-12 09:32] LABS: ALBUMIN 1.5 g/dL (3.4-5.0); CALCIUM 8.2 mg/dL (8.5-10.1); CARBON DIOXIDE 22.6 mmol/L (21-32); COR CA(FOR HYPOALB) 10.2 mg/dL (8.5-10.1); CREATININE 4.35 mg/dL (0.70-1.30); POTASSIUM 3.6 mmol/L (3.5-5.1); TOTAL PROTEIN 5.5 g/dL (6.4-8.2)
[2022-06-12 09:35] LABS: HEMATOCRIT 34.3 % (42.0-54.0); LYMPHOCYTES % (AUTO) 7.5 % (21.0-51.0); MEAN CORPUSCULAR HEMOGLOBIN 28.2 pg (27.0-34.0); MEAN CORPUSCULAR HGB CONC 32.5 g/dL (33.0-35.0); MEAN CORPUSCULAR VOLUME 86.5 fL (80.0-100.0); MEAN PLATELET VOLUME 7.7 fL (7.4-11.0); MONOCYTES % (AUTO) 2.7 % (0.0-13.0); NEUTROPHILS % (AUTO) 89.6 % (42.0-75.0); PLATELET COUNT 266 X10^3/uL (150.0-450.0); RED BLOOD COUNT 3.96 X10^6/uL (4.7-6.0); RED CELL DISTRIBUTION WIDTH 16.7 % (11.6-16.5)
[2022-06-12 09:56] LABS: SMUDGE CELLS PRESENT
[2022-06-12 09:57] LABS: PLATELET MORPHOLOGY COMMENT NORMAL (NORMAL)
[2022-06-12] MEDS: DILAUDID INJ IVP PRN ×2 (11:17→14:16)
[2022-06-12] MEDS: ZOFRAN INJ 4 MG VIAL IVP PRN (14:14)
[2022-06-12] MEDS ORDERED: DILAUDID INJ IVP PRN (14:40)
[2022-06-12] MEDS ORDERED: ZOSYN VIAL 3.375 GRAMS IV ONE (21:19)
[2022-06-12] MEDS ORDERED: NS 100 ML IV 100 ML ONE (21:20)
[2022-06-12] MEDS ORDERED: D5 1/2 NS + KCL 20 MEQ/L 1,000 ML IV ONE (21:21)
--- NOTE | 2022-06-13 01:22 | DR.H&P ---
H&P - History & Physical for Day of: H&P Date: 06/11/22 - Chief Complaint Chief Complaint: ABDOMINAL PAIN, AMS, NAUSEA/VOMITING - History of Present Illness History of Present Illness: IS A 77 YEAR OLD WHITE MALE WITH RECENTLY DIAGNOSED METASTATIC COLON CANCER, ANXIETY, CAD, DM II, HTN, OR, COLOSTOMY. HE WAS RECENTLY PLACED UNDER HOSPICE CARE DUE TO STAGE 4 COLON CANCER. HE PRESENTED TO THE ER WITH REPORTS OF ABDOMINAL PAIN, INTRACTABLE NAUSEA AND VOMITING, FEVER, AND ALTERED MENTAL STATUS. PATIENTS SPOUSE REPORTS THAT HE HAS BEEN COUGHING UP DARK EMESIS. PATIENT REPORTS THAT ABDOMINAL PAIN IS DIFFUSE, SHARP, AND CONSTANT. PAIN DOES NOT RADIATE. NOTHING MAKES IT BETTER. SPOUSE REPORTS THAT SHE CHANGED HIS COLOSTOMY BAG A FEW HOURS AGO AND IT HAS HAD NO OUTPUT SINCE. ON ARRIVAL TO THE ER, HIS VITALS WERE 97.3-828-71-100%-90/54. HE WAS ON NASAL CANNULA AT 2 LPM. LABS WERE OBTAINED. WBC 17.5, RBC 4.45, HGB 12.8, HCT 38.5, PLT COUNT 556, INR 1.29, SODIUM 138, POTASSIUM 2.9, CHLORIDE 99, CARBON DIOXIDE 27.0, BUN 20, CREATININE 3.08, GLUCOSE 168, LACTIC ACID 7.2, CALCIUM 9.6, TOTAL BILI 0.40, AST 49, ALT 24, ALK PHOS 264, TOTAL PROTEIN 6.9, ALBUMIN 2.0, LIPASE 35. A RESPIRATORY VIRAL PANEL WAS SET UP. BLOOD CULTURES WERE ALSO SET UP. A CHEST XRAY WAS OBTAINED AND REVEALED: Suspicious free air with lucency in the right diaphragm. Increase of the interstitial markings in the bases, it could represent viral pneumonia clinical correlation is recommended. AN ABDOMEN/PELVIS CT WITHOUT CONTRAST WAS OBTAINED AND REVEALED: Pneumoperitoneum which, in the absence of recent surgery, peritoneal dialysis, or peg tube place ment or manipulation, indicates a perforated viscus. Site of perforation not obvious. Immediate surgical evaluation is recommended. Peritoneal fluid present suggestive of developing acute peritonitis. Multiple loops of distal small bowel demonstrating transmural thickening, adjacent mesenteric edema and perienteric fluid. Frontal diagnostic considerations include ischemic small bowel and acute inflammatory or infectious enteritis. Diffuse hepatic metastatic disease progressive when compared to the prior examination. Re-demonstration of the patient's sigmoid and rectal malignancies. Minimal anterolisthesis L5 on S1 secondary to bilateral spondylolysis at L5. , GENERAL SURGEON, WAS CONSULTED. HE EXPLAINED TO PATIENTS SPOUSE THAT HE WAS A POOR CANDIDATE FOR SURGICAL INTERVENTION. PATIENTS SPOUSE REFUSED ANY TYPE OF SURGICAL INTERVENTION. WE DISCUSSED FURTHER TREATMENT OPTIONS VS PALLIATIVE CARE. PATIENTS SPOUSE WISHED FOR HIM TO BE A DNR, HOWEVER, SHE DOES WISH TO PROCEED WITH TREATMENT OF INFECTION. WHILE IN THE ER, PATIENTS BLOOD PRESSURE DROPPED TO THE 70s/50S. PATIENT WAS GIVEN DILAUDID 1MG IV X 1, A NORMAL SALINE BOLUS X 2 LITERS, ZOFRAN 4MG IV X 1, ZOSYN 3.375G IV X 1 WHILE IN THE ER. PATIENT WAS ADMITTED TO THE HOSPITAL FOR FURTHER EVALUATION AND TREATMENT OF PERFORATED ABDOMINAL VISCUS, PNEUMONIA, NONTRAUMATIC RENAL INJURY, SEPSIS. HE WAS STARTED ON D51/2 NS WITH 20MEQ KCL AT 125 ML/HR, ZOSYN 3.375G IV BID, PULMICORT NEBS BID, XOPENEX NEBS QID, DILAUDID 2MG IV Q3H PRN, AND ZOFRAN 4MG IV Q6H PRN. OTHERWISE, WE WILL FOLLOW-UP WITH AM LABS AND CONTINUE TO MONITOR. TIME SPENT ON CLINICAL ASSESSMENT, REVIEWING LABS AND IMAGING, DECISION MAKING, AND DOCUMENTATION GREATER THAN 75 MINUTES. - Past Medical History Past Medical History: OR, Coronary Artery Disease, Hypertension, Diabetes, Anxiety - Past Surgical History Surgical History: Ortho Surgery - Family History Family Medical History: Diabetes Mellitus, Cancer, OR, Coronary Artery Disease, Hypertension - Social History Does patient currently use any type of tobacco product: No Have you used tobacco products in the last 12 months: No Type of Tobacco Use: Pipe Does any household member use tobacco: No Alcohol Use: DAILY Drug Use: None - Medications Home Medications: aspirin Adverse Reaction (Mild, Verified 03/30/22 10:24) stomach problems gabapentin Adverse Reaction (Mild, Verified 06/11/22 09:16) CONTINUE taking the following medications cetirizine 5 mg chewable tablet 5 mg PO QDAY 06/11/22 [History] docusate sodium 100 mg capsule 1 cap PO BID 06/11/22 [History] hydrocodone 10 mg-acetaminophen 325 mg tablet 1 tab PO Q6H PRN pain 06/11/22 [History] ibuprofen 800 mg tablet 1 tab PO Q6H PRN pain 06/11/22 [History] lorazepam 0.5 mg tablet 1 tab PO Q6H PRN anxiety 06/11/22 [History] metoprolol succinate 50 mg tablet,extended release 24 hr 1 tab PO QDAY 06/11/22 [History] ondansetron 4 mg disintegrating tablet 4 mg PO Q6H PRN 06/11/22 [History] - Review of Systems Constitutional: Weakness Eyes: No Symptoms Reported ENT: No Symptoms Reported Respiratory: No Symptoms Reported Cardiovascular: No Symptoms Reported Gastrointestinal: Nausea, Vomiting, Abdominal Pain Genitourinary: No Symptoms Reported Musculoskeletal: No Symptoms Reported Skin: No Symptoms Reported Neurological: Weakness, Confusion - Physical Exam Vital Signs: Temperature 98.7 F Pulse Rate [Bilateral Radial] 95 Pulse Rate 110 Respiratory Rate 20 Blood Pressure [Left Arm] 85/57 Blood Pressure 62/46 O2 Sat by Pulse Oximetry 96 Oriented: Person, Place. negative: Time Eyes: Normal Ear: Normal Nose: Normal Throat: Normal Respiratory: Diminished Throughout Cardiovascular: Tachycardia : Normal Auscultation: Bowel Sounds: Normal Palpation: Normal Tenderness: Diffuse, Moderate, Other (COLOSTOMY ) Skin: Decreased Turgur Musculoskeletal: Normal Psychiatric: Agitation Mood Description: Anxious Affect: Anxious Speech Pattern: Unclear - Assessment/Plan (1) Perforated abdominal viscus Status: Acute Plan: ADMIT, SUPPLEMENTAL OXYGEN, D51/2 NS WITH 20MEQ KCL AT 125 ML/HR, ZOSYN 3.375G IV BID, PULMICORT NEBS BID, XOPENEX NEBS QID, DILAUDID 2MG IV Q3H PRN, AND ZOFRAN 4MG IV Q6H PRN. (2) Sepsis Qualifiers: Sepsis type: sepsis due to unspecified organism Sepsis acute organ dysfunction status: with acute organ dysfunction Severe sepsis acute organ dysfunction type: acute renal failure Acute renal failure type: unspecified Severe sepsis shock status: with septic shock Qualified Code(s): A41.9 - Sepsis, unspecified organism; R65.21 - Severe sepsis with septic shock; N17.9 - Acute kidney failure, unspecified Status: Acute (3) Pneumonia Qualifiers: Pneumonia type: due to unspecified organism Laterality: bilateral Lung location: lower lobe of lung Qualified Code(s): J18.9 - Pneumonia, unspecified organism Status: Acute (4) Carcinoma of colon metastatic to multiple sites Status: Acute (5) Acute nontraumatic kidney injury Status: Acute - Allergies Allergies/Adverse Reactions: Allergies Allergy/AdvReac Type Severity Reaction Status Date / Time aspirin AdvReac Mild stomach Verified 03/30/22 10:24 problems gabapentin AdvReac Mild Verified 06/11/22 09:16
[2022-06-13 05:03] LABS: ALBUMIN 1.2 g/dL (3.4-5.0); CALCIUM 7.6 mg/dL (8.5-10.1); COR CA(FOR HYPOALB) 9.8 mg/dL (8.5-10.1); CREATININE 5.52 mg/dL (0.70-1.30); POTASSIUM 4.5 mmol/L (3.5-5.1); TOTAL PROTEIN 5.4 g/dL (6.4-8.2)
[2022-06-13 05:07] LABS: BASOPHILS # (AUTO) 0.1 X10^3/uL (0.0-0.1); BASOPHILS % (AUTO) 0.3 % (0.2-1.0); EOSINOPHILS # (AUTO) 0.1 x10^3/uL (0.0-0.2); EOSINOPHILS % (AUTO) 0.3 % (0.9-2.9); HEMATOCRIT 30.1 % (42.0-54.0); HEMOGLOBIN 9.9 g/dL (13.5-18.0); LYMPHOCYTES # (AUTO) 1.1 X10^3/uL (1.3-2.9); LYMPHOCYTES % (AUTO) 5.4 % (21.0-51.0); MEAN CORPUSCULAR HEMOGLOBIN 28.6 pg (27.0-34.0); MEAN CORPUSCULAR VOLUME 86.8 fL (80.0-100.0); MEAN PLATELET VOLUME 8.2 fL (7.4-11.0); MONOCYTES # (AUTO) 0.3 x10^3/uL (0.3-0.8); MONOCYTES % (AUTO) 1.5 % (0.0-13.0); NEUTROPHILS # (AUTO) 19.4 x10^3/uL (2.2-4.8); NEUTROPHILS % (AUTO) 92.5 % (42.0-75.0); PLATELET COUNT 173 X10^3/uL (150.0-450.0); RED BLOOD COUNT 3.46 X10^6/uL (4.7-6.0); RED CELL DISTRIBUTION WIDTH 16.7 % (11.6-16.5)
[2022-06-13] MEDS: D5 1/2 NS + KCL 20 MEQ/L 1,000 ML IV SCH ×2 (05:22→07:25)
[2022-06-13 05:47] LABS: BAND NEUTROPHILS % 13 % (0-10); BURR CELLS PRESENT; PLATELET MORPHOLOGY COMMENT NORMAL (NORMAL); SMUDGE CELLS PRESENT
[2022-06-13 06:40] VITALS: BP 64/43
--- NOTE | 2022-06-13 07:14 | RAD ---
HISTORYSOBSTUDYAP chestCOMPARISONMay 2022FINDINGSMinimal diffuse and non localized infiltrates are again noted in the bases without evidence for segmental or lobar consolidation or significant pleural fluid. Heart size is unchanged. Stable position of right IJ port with interval removal of enteric tube.IMPRESSIONPersistent bibasal infiltrates with no new abnormality identified.Electronically signed by: MELISSA GARCIA (June 13, 2022 07:13:05)
== END 2022-06-13 08:15 | disposition expired | DRG 871 ==
LOC: EDACCT# → ER 08:45 → MED/SURG 11:18 → ICU 14:05
PROVIDERS: ADMIT Internal Medicine; ATTEND Internal Medicine
DX: Z66 Do not resuscitate; A41.89 Other specified sepsis; R10.84 Generalized abdominal pain; I25.10 Atherosclerotic heart disease of native coronary artery without angina pectoris; F41.8 Other specified anxiety disorders; C79.89 Secondary malignant neoplasm of other specified sites; R11.2 Nausea with vomiting, unspecified; K63.1 Perforation of intestine (nontraumatic); Z93.3 Colostomy status; C18.6 Malignant neoplasm of descending colon; E11.65 Type 2 diabetes mellitus with hyperglycemia; R41.82 Altered mental status, unspecified; I10 Essential (primary) hypertension; R06.02 Shortness of breath; N17.8 Other acute kidney failure; R65.21 Severe sepsis with septic shock; J18.8 Other pneumonia, unspecified organism; I46.9 Cardiac arrest, cause unspecified; Z20.822 Contact with and (suspected) exposure to COVID-19